=== PATIENT | female | born 1945 | race African-American/Black ===

== ENCOUNTER 2018-02-14 16:37 | Emergency (ER) | payer OTHER ==
[~2018-02-14] VITALS: Ht 170.2 cm; Wt 88.5 kg
[2018-02-14 16:42] VITALS: Ht 170.2 cm; Wt 88.5 kg
[2018-02-14 20:23] VITALS: BP 120/82
== END 2018-02-14 20:23 | disposition home or self-care (01) ==
LOC: ED 16:37
DX: F32.9 Major depressive disorder, single episode, unspecified (principal); R10.30 Lower abdominal pain, unspecified; R63.0 Anorexia; I10 Essential (primary) hypertension; F31.9 Bipolar disorder, unspecified; Z98.890 Other specified postprocedural states; Z88.1 Allergy status to other antibiotic agents
CPT/HCPCS: G0480

== ENCOUNTER 2018-02-14 22:11 | Emergency (ER) | payer OTHER ==
[~2018-02-14] VITALS: Ht 170.2 cm; Wt 88.5 kg
[2018-02-14 22:17] VITALS: Ht 170.2 cm; Wt 88.5 kg
[2018-02-14 23:14] LABS: PLATELET COUNT 273 x10^3mcL (130-400)
[2018-02-14 23:28] LABS: CALCIUM 9.4 mg/dL (8.5-10.1); CARBON DIOXIDE 24.2 mmol/L (21-32); CHLORIDE SERUM 108 mmol/L (98-107); CREATININE SERUM 1.1 mg/dL (0.6-1.0); GLUCOSE SERUM 84 mg/dL (74-106); POTASSIUM SERUM 4.2 mmol/L (3.5-5.1); SODIUM SERUM 145 mmol/L (136-145)
[2018-02-14 23:35] LABS: ALKALINE PHOSPHATASE 53 U/L (46-116); ALT/SGPT 50 U/L (14-59); AST/SGOT 34 U/L (15-37); BILIRUBIN TOTAL 0.7 mg/dL (0.20-1.00); TOTAL PROTEIN, SERUM 7.8 g/dL (6.4-8.2)
[2018-02-15 01:05] LABS: UA SPECIFIC GRAVITY >=1.030 (1.005-1.035); microscopic required? YES; urine erythrocyte NEGATIVE (NEGATIVE)
[2018-02-15 01:20] LABS: AMPHETAMINE QUAL UR NONE DETECTED (See below)
[2018-02-15 02:36] VITALS: BP 128/71
== END 2018-02-15 02:36 | disposition home or self-care (01) ==
LOC: ED 22:11
PROVIDERS: Emergency Medicine
DX: N39.0 Urinary tract infection, site not specified (principal); N28.9 Disorder of kidney and ureter, unspecified; F32.9 Major depressive disorder, single episode, unspecified; Z90.710 Acquired absence of both cervix and uterus; Z98.890 Other specified postprocedural states; Z88.1 Allergy status to other antibiotic agents
CPT/HCPCS: G0480; J0696

== ENCOUNTER 2018-02-17 13:08 | Inpatient (IN) | payer OTHER ==
[~2018-02-17] VITALS: Ht 170.2 cm; Wt 82.2 kg
[2018-02-17 13:12] VITALS: Ht 170.2 cm; Wt 82.2 kg
[2018-02-17 16:49] LABS: BASOPHIL % 0.3 % (0-2); PLATELET COUNT 288 x10^3mcL (130-400); RED CELL DISTRIBUTION WIDTH 15.1 % (11.5-14.5)
[2018-02-17 16:58] LABS: CALCIUM 9.7 mg/dL (8.5-10.1); CARBON DIOXIDE 25.6 mmol/L (21-32); CHLORIDE SERUM 107 mmol/L (98-107); CREATININE SERUM 0.8 mg/dL (0.6-1.0); GLUCOSE SERUM 88 mg/dL (74-106); POTASSIUM SERUM 3.7 mmol/L (3.5-5.1); SODIUM SERUM 145 mmol/L (136-145)
[2018-02-17 17:02] LABS: ALBUMIN 4.1 g/dL (3.4-5.0); ALKALINE PHOSPHATASE 56 U/L (46-116); ALT/SGPT 53 U/L (14-59); AST/SGOT 27 U/L (15-37); BILIRUBIN TOTAL 0.6 mg/dL (0.20-1.00); CHOLESTEROL 193 mg/dL (<200); TOTAL PROTEIN, SERUM 8.1 g/dL (6.4-8.2)
[2018-02-17 18:10] LABS: CHOLESTEROL/HDL RATIO 3.9; MAGNESIUM 2.1 mg/dL (1.8-2.4); PHOSPHOROUS 4.3 mg/dL (2.5-4.9)
[2018-02-17 18:13] LABS: T3 TOTAL 1.17 ng/mL
[2018-02-17 18:18] LABS: FREE T4 1.15 ng/dL (0.76-1.46); FREE THYROXINE INDEX 2.8 ug/dL (1.4-4.5); T4(THYROXINE) 8.5 ug/dL (4.7-13.3)
[2018-02-17] MEDS ORDERED: CELEXA20 MG (18:30)
[2018-02-17] MEDS ORDERED: KEFLEX500 M1 (18:31)
[2018-02-17] MEDS ORDERED: TRAZODONE50 M1 (18:31)
[2018-02-17] MEDS ORDERED: OMEPRAZOLE40 M1 (18:31)
[2018-02-17] MEDS ORDERED: ARICEPT10 MG (18:31)
[2018-02-17] MEDS ORDERED: SYNRIBO3.5 MG (18:31)
[2018-02-17] MEDS ORDERED: XARELTO10 M1 (18:31)
[2018-02-17 20:19] VITALS: BP 128/73
[2018-02-18 05:36] VITALS: BP 148/81
[2018-02-18 07:32] LABS: microscopic required? NO
[2018-02-18 08:32] VITALS: BP 169/75
[2018-02-18 08:36] LABS: UA SPECIFIC GRAVITY >=1.030 (1.005-1.035); urine erythrocyte NEGATIVE (NEGATIVE)
[2018-02-18 10:15] VITALS: BP 147/87
[2018-02-18 12:24] VITALS: BP 144/88
[2018-02-18 17:12] VITALS: BP 135/74
[2018-02-18 21:19] VITALS: BP 138/78
[2018-02-19 05:02] VITALS: BP 122/72
[2018-02-19 06:57] LABS: BASOPHIL % 0.5 % (0-2); PLATELET COUNT 247 x10^3mcL (130-400)
[2018-02-19 07:01] LABS: RED CELL DISTRIBUTION WIDTH 14.9 % (11.5-14.5)
[2018-02-19 07:22] LABS: CALCIUM 8.8 mg/dL (8.5-10.1); CARBON DIOXIDE 25.6 mmol/L (21-32); CHLORIDE SERUM 108 mmol/L (98-107); CREATININE SERUM 0.9 mg/dL (0.6-1.0); GLUCOSE SERUM 101 mg/dL (74-106); MAGNESIUM 1.9 mg/dL (1.8-2.4); PHOSPHOROUS 3.7 mg/dL (2.5-4.9); POTASSIUM SERUM 3.7 mmol/L (3.5-5.1); SODIUM SERUM 142 mmol/L (136-145)
[2018-02-19 09:06] VITALS: BP 158/78
[2018-02-19 13:07] VITALS: BP 145/79
[2018-02-19 17:36] VITALS: BP 146/84
[2018-02-19 21:16] VITALS: BP 147/86
[2018-02-20 05:55] VITALS: BP 156/86
[2018-02-20 10:08] VITALS: BP 182/94
[2018-02-20 13:56] VITALS: BP 156/67
[2018-02-20 17:06] VITALS: BP 111/65
[2018-02-20 21:13] VITALS: BP 115/64
[2018-02-21 10:28] VITALS: BP 174/87
[2018-02-21 12:14] VITALS: BP 160/83
[2018-02-21 17:23] VITALS: BP 154/99
[2018-02-21 21:03] VITALS: BP 169/86
[2018-02-22 06:13] VITALS: BP 142/78
[2018-02-22 09:31] VITALS: BP 149/84
[2018-02-22 12:16] VITALS: BP 165/89
[2018-02-22 16:55] VITALS: BP 131/80
[2018-02-22 20:27] VITALS: BP 165/84
[2018-02-23 05:59] VITALS: BP 142/88
[2018-02-23 06:23] LABS: BASOPHIL % 0.3 % (0-2); PLATELET COUNT 218 x10^3mcL (130-400)
[2018-02-23 07:06] LABS: CALCIUM 8.5 mg/dL (8.5-10.1); CHLORIDE SERUM 106 mmol/L (98-107); CREATININE SERUM 0.8 mg/dL (0.6-1.0); GLUCOSE SERUM 122 mg/dL (74-106); POTASSIUM SERUM 3.6 mmol/L (3.5-5.1); SODIUM SERUM 141 mmol/L (136-145)
[2018-02-23 07:14] VITALS: BP 168/86
[2018-02-23 07:37] LABS: RED CELL DISTRIBUTION WIDTH 14.6 % (11.5-14.5)
[2018-02-23 12:07] VITALS: BP 186/92
[2018-02-23 14:31] VITALS: BP 161/78; BP 186/92
[2018-02-23] MEDS ORDERED: REM15 PO (14:46)
[2018-02-23] MEDS ORDERED: ZYPREXA ZYDIS5 MG PO (14:48)
[2018-02-23 21:12] VITALS: BP 166/75
== END 2018-02-24 04:22 | disposition short-term general hospital (02) | DRG 56 ==
LOC: ED 13:08 → DU 17:19
PROVIDERS: Emergency Medicine; Family Medicine; General Practice
PROC: 05HM33Z Insertion of Infusion Device into Right Internal Jugular Vein, Percutaneous Approach (ICD-10-PCS; principal; 2018-02-17)
PROC: B543ZZA Ultrasonography of Right Jugular Veins, Guidance (ICD-10-PCS; 2018-02-17)
DX: G30.9 Alzheimer's disease, unspecified (principal); G93.41 Metabolic encephalopathy; N17.0 Acute kidney failure with tubular necrosis; F33.9 Major depressive disorder, recurrent, unspecified; G90.8 Other disorders of autonomic nervous system; E11.65 Type 2 diabetes mellitus with hyperglycemia; E86.0 Dehydration; F02.80 Dementia in other diseases classified elsewhere, unspecified severity, without behavioral disturbance, psychotic disturbance, mood disturbance, and anxiety; E78.5 Hyperlipidemia, unspecified; E66.9 Obesity, unspecified; Z68.30 Body mass index [BMI] 30.0-30.9, adult; Z96.653 Presence of artificial knee joint, bilateral; Z91.14 Patient's other noncompliance with medication regimen; Z86.718 Personal history of other venous thrombosis and embolism
CPT/HCPCS: 82962; 83880; 84439; 97110-GP; 97116-GP; 97530-GP; C9113; G0480; J0696; J1200; J1630; J1644; J2060; J3490; J7030; J7042; Q0092